=== PATIENT | male | born 1980 | race American Indian/Alaskan Native ===

== ENCOUNTER 2018-02-07 10:00 | Emergency (ER) | payer MEDICAID, OTHER ==
[2018-02-07 10:43] VITALS: BMI 42.3
--- NOTE | 2018-02-07 11:02 | C.PDOC ---
History Of Present Illness 37 y/o male presents to ED with c/o chest tightness "pulling" in nature 03/03 for 4 days worse today. Patient states symptoms are worse with certain movement or swallowing. Patient denies sob, cough, fever, back pain or any other complaints at this time. Time Seen by Provider: 02/07/18 10:41 Chief Complaint (Nursing): Chest Pain History Per: Patient History/Exam Limitations: no limitations Onset/Duration Of Symptoms: Days Current Symptoms Are (Timing): Still Present Quality: Tightness Past Medical History Reviewed: Historical Data, Nursing Documentation, Vital Signs Vital Signs: Last Vital Signs Temp 98.9 F 02/07/18 10:40 Pulse 86 02/07/18 11:33 Resp 20 02/07/18 10:40 BP 130/88 02/07/18 10:40 Pulse Ox 96 02/07/18 13:09 - Medical History PMH: Diverticulitis, HTN Surgical History: No Surg Hx - [facility] Procedures FLUOROSCOPY OF LEFT HEART USING LOW OSMOLAR CONTRAST (02/09/16) FLUOROSCOPY OF MULT COR ART USING L OSM CONTRAST (02/09/16) MEASURE OF CARDIAC SAMPL & PRESSURE, L HEART, PERC APPROACH (02/09/16) Family History: States: No Known Family Hx - Social History Hx Tobacco Use: Yes Hx Alcohol Use: Yes Hx Substance Use: No - Immunization History Hx Tetanus Toxoid Vaccination: No Hx Influenza Vaccination: No Hx Pneumococcal Vaccination: No Review Of Systems Constitutional: Negative for: Fever, Chills Cardiovascular: Positive for: Chest Pain Respiratory: Negative for: Cough, Shortness of Breath Gastrointestinal: Negative for: Nausea, Vomiting Skin: Negative for: Rash Physical Exam - Physical Exam Appears: Non-toxic, No Acute Distress Skin: Warm, Dry, No Rash Head: Atraumatic, Normacephalic Eye(s): bilateral: Normal Inspection Oral Mucosa: Moist Neck: Normal ROM, Supple Chest: Symmetrical Cardiovascular: Rhythm Regular Respiratory: Normal Breath Sounds, No Rales, No Rhonchi, No Wheezing Gastrointestinal/Abdominal: Soft, No Tenderness, No Guarding, No Rebound Extremity: Normal ROM, No Pedal Edema, Capillary Refill (<2 seconds) Neurological/Psych: Oriented x3, Normal Speech, Normal Cognition ED Course And Treatment - Laboratory Results Result Diagrams: 02/07/18 11:39 02/07/18 11:39 O2 Sat by Pulse Oximetry: 96 (RA) Pulse Ox Interpretation: Normal - Other Rad CXR X-Ray: Viewed By Me, Read By Radiologist Interpretation: Chest x-ray single frontal view. History: Chest pain. Comparison: None available. Findings. No focal infiltrate or effusion. Heart size within normal limits. Impression: No focal infiltrate or effusion. Medical Decision Making Medical Decision Making: Plan: --Labs --CXR --Toradol IV Updates: CXR was negative. On re-evaluation, patient feels better. Patient has been discharged and instructed to follow up with his PMD. Disposition Counseled Patient/Family Regarding: Studies Performed, Diagnosis, Need For Followup, Rx Given - Disposition Referrals: [facility] [Outside] Disposition: HOME/ ROUTINE Disposition Time: 12:49 Condition: STABLE Additional Instructions: Follow up with your doctor or our clinic Prescriptions: Ibuprofen [Motrin] 600 mg PO TID #15 tab Instructions: Costochondritis (DC) Forms: General Discharge Instructions, [facility] ([place]), Work Excuse - POA Present On Arrival: None - Clinical Impression Clinical Impression: Chest wall pain - Scribe Statement The provider has reviewed the documentation as recorded by the Scribjosé luis Hernandez All medical record entries made by the Swapnilibjosé luis were at my direction and personally dictated by me. I have reviewed the chart and agree that the record accurately reflects my personal performance of the history, physical exam, medical decision making, and the department course for this patient. I have also personally directed, reviewed, and agree with the discharge instructions and disposition.
[2018-02-07 11:43] LABS: BASO # 0.1 K/uL (0.0-0.2); EOS # 0.2 K/uL (0.0-0.7); EOS % 3.6 % (0.0-4.0); HEMOGLOBIN 15.1 g/dL (12.0-18.0); LYMPH # 2.2 K/uL (1.0-4.3); LYMPH % 33.5 % (20.0-40.0); MEAN CELL VOLUME 90.4 fL (80.0-94.0); MEAN CORPUSCULAR HGB CONC 35.5 g/dL (33.0-37.0); MEAN PLATELET VOLUME 9.7 fL (7.2-11.7); MONO # 0.6 K/uL (0.0-0.8); MONO % 8.6 % (0.0-10.0); NEUT # 3.5 K/uL (1.8-7.0); NEUT % 53.3 % (50.0-75.0); NRBC % 0.1 % (0.0-2.0); RBC 4.71 Mil/uL (4.40-5.90); RED CELL DISTRIBUTION WIDTH 14.5 % (11.5-14.5); WHITE BLOOD COUNT 6.6 K/uL (4.8-10.8)
[2018-02-07 12:06] LABS: ALB/GLOB RATIO 1.1 (1.0-2.1); ALBUMIN 4.5 g/dL (3.5-5.0); ALT/SGPT 34 U/L (21-72); AST/SGOT 29 U/L (17-59); BLOOD UREA NITROGEN 15 mg/dL (9-20); CALCIUM 9.4 mg/dl (8.6-10.4); GFR AFRICAN-AMERICAN > 60; GFR NON-AFRICAN AMERICAN > 60
--- NOTE | 2018-02-07 13:00 | RAD ---
Chest x-ray single frontal view History: Chest pain. Comparison: None available. Findings No focal infiltrate or effusion. Heart size within normal limits. Impression: No focal infiltrate or effusion.
[2018-02-07 13:16] VITALS: BP 128/82; PULSE 80; RESP 18; TEMP 98.4; O2SAT 97
--- NOTE | 2018-02-08 12:45 | CARD ---
APPROVED REPORT EKG Measurement Heart [id number] <Conclusion> Sinus rhythm with 1st degree AV block Right axis deviation Cannot rule out Anterior infarct, age undetermined Abnormal ECG
== END 2018-02-07 13:16 | disposition home or self-care (01) ==
LOC: C.ER 10:00
DX: R07.89 Other chest pain (principal); I10 Essential (primary) hypertension; Z87.891 Personal history of nicotine dependence
CPT/HCPCS: 71046; 80053; 84484; 85025; 93005; 96374; 99284; J1885

== ENCOUNTER 2018-05-06 12:53 | Emergency (ER) | payer OTHER ==
[2018-05-06 12:54] VITALS: BMI 43.9
[2018-05-06 13:04] VITALS: TEMP 98.8
[2018-05-06] MEDS ORDERED: Mag&Al/Simet/Diphen/Lido 237 ML KIT MM STA (14:31)
--- NOTE | 2018-05-06 14:35 | C.PDOC ---
History Of Present Illness 37 y/o M c PMHx HTN p/w sore throat x 4 days. Pain is in throat, worse with swallowing, associated with subjective fever although patient states temperature was normal at home. Having difficulty eating due to pain and has attempted to take Aleve and Nyquil. Denies recent travel, sick contacts, dyspnea , nausea, vomiting, rash, drooling. Time Seen by Provider: 05/06/18 14:24 Chief Complaint (Nursing): Cough, Cold, Congestion Past Medical History Vital Signs: Last Vital Signs Temp 98.8 F 05/06/18 13:00 Pulse 90 05/06/18 13:00 Resp 19 05/06/18 13:00 BP 148/105 H 05/06/18 13:00 Pulse Ox 97 05/06/18 16:16 - Medical History PMH: Diverticulitis, HTN - [facility] Procedures FLUOROSCOPY OF LEFT HEART USING LOW OSMOLAR CONTRAST (02/09/16) FLUOROSCOPY OF MULT COR ART USING L OSM CONTRAST (02/09/16) MEASURE OF CARDIAC SAMPL & PRESSURE, L HEART, PERC APPROACH (02/09/16) Family History: States: No Known Family Hx - Social History Hx Tobacco Use: Yes Hx Alcohol Use: Yes Hx Substance Use: Yes - Immunization History Hx Tetanus Toxoid Vaccination: Yes Hx Influenza Vaccination: No Hx Pneumococcal Vaccination: No Review Of Systems Except As Marked, All Systems Reviewed And Found Negative. Cardiovascular: Negative for: Chest Pain Gastrointestinal: Negative for: Vomiting Physical Exam - Physical Exam Additional Physical Exam Comments: Constitutional: No acute distress. Head: Normocephalic. Atraumatic. Eyes: PERRL. ENT: Pharyngeal erythema, no exudates. Uvula midline. No drooling. No stridor. Bilateral tender lymphadenpathy. Neck: Supple. Cardiovascular: Regular rate. Radial pulse 2+ bilaterally. Chest: No tenderness. Respiratory: Clear to auscultation bilaterally. GI: Soft. Nontender. Nondistended. Back: No CVA tenderness. Musculoskeletal: No tenderness or swelling of extremities. Skin: No rash. Neurologic: Alert, no focal deficit. ED Course And Treatment O2 Sat by Pulse Oximetry: 97 (RA) Pulse Ox Interpretation: Normal Medical Decision Making Medical Decision Making: Patient with pharyngitis, will evaluate for strep throat and treat symptomatically with magic mouthwash, toradol, and decadron. CXR to exclude pneumonia. EKG: NSR [address]/T changes Chest X-Ray: HISTORY: cough COMPARISON: 02/07/2018 TECHNIQUE: Chest PA and lateral FINDINGS: LUNGS: No active pulmonary disease. PLEURA: No significant pleural effusion identified. No pneumothorax apparent. CARDIOVASCULAR: Normal. OSSEOUS STRUCTURES: No significant abnormalities. VISUALIZED UPPER ABDOMEN: Normal. OTHER FINDINGS: None. IMPRESSION: No active disease. Strep test negative. Patient feels better after treatment. Will discharge, f/u PMD, return to ED for worsening pain, vomiting, dyspnea, drooling, or any other problem. Disposition - Disposition Referrals: [facility] [Outside] Disposition: HOME/ ROUTINE Disposition Time: 16:00 Condition: STABLE Prescriptions: Dexamethasone [Decadron] 5 tab PO ONCE #5 tab Famotidine [Pepcid] 1 tab PO BID #14 tab Ibuprofen [Motrin] 600 mg PO Q6 #25 tab Instructions: Viral Pharyngitis Forms: [facility] (Spanish) - Clinical Impression Clinical Impression: Pharyngitis
--- NOTE | 2018-05-06 15:09 | RAD ---
Date of service: 05/06/2018 HISTORY: cough COMPARISON: 02/07/2018 TECHNIQUE: Chest PA and lateral FINDINGS: LUNGS: No active pulmonary disease. PLEURA: No significant pleural effusion identified. No pneumothorax apparent. CARDIOVASCULAR: Normal. OSSEOUS STRUCTURES: No significant abnormalities. VISUALIZED UPPER ABDOMEN: Normal. OTHER FINDINGS: None. IMPRESSION: No active disease.
[2018-05-06 16:32] VITALS: BP 144/89; PULSE 95; RESP 18; O2SAT 95
--- NOTE | 2018-05-07 12:05 | CARD ---
APPROVED REPORT Date of service: 05/06/2018 EKG Measurement Heart [id number] <Conclusion> Sinus rhythm with 1st degree AV block Possible Left atrial enlargement Left posterior fascicular block Abnormal ECG
== END 2018-05-06 16:31 | disposition home or self-care (01) ==
LOC: C.ER 12:53
DX: J02.9 Acute pharyngitis, unspecified (principal); I10 Essential (primary) hypertension; Z72.0 Tobacco use
CPT/HCPCS: 71046; 87070; 87430; 93005; 96372; 99284; J1885; J8540

== ENCOUNTER 2018-11-19 10:39 | Emergency (ER) | payer OTHER ==
[2018-11-19 10:39] VITALS: BMI 43.9
[2018-11-19 10:51] VITALS: BP 153/95; O2SAT 98
--- NOTE | 2018-11-19 11:08 | C.PDOC ---
Time Seen by Provider: 11/19/18 10:55 Chief Complaint (Nursing): Flu-like Symptoms History Per: Patient Onset/Duration Of Symptoms: Days (1) Current Symptoms Are (Timing): Still Present Associated Symptoms: Fever, Chills, Sore Throat, Cough, Myalgias, Nasal Congestion, Diarrhea Severity: Moderate Recent travel outside of the [place]: No Additional History Per: Prior Records Past Medical History Reviewed: Historical Data, Nursing Documentation, Vital Signs Vital Signs: Last Vital Signs Temp 101.7 F H 11/19/18 10:49 Pulse 116 H 11/19/18 10:49 Resp 16 11/19/18 10:49 BP 153/95 H 11/19/18 10:49 Pulse Ox 98 11/19/18 10:49 - Medical History PMH: Diverticulitis, HTN - [facility] Procedures FLUOROSCOPY OF LEFT HEART USING LOW OSMOLAR CONTRAST (02/09/16) FLUOROSCOPY OF MULT COR ART USING L OSM CONTRAST (02/09/16) MEASURE OF CARDIAC SAMPL & PRESSURE, L HEART, PERC APPROACH (02/09/16) Family History: States: Unknown Family Hx - Social History Hx Tobacco Use: Yes Hx Alcohol Use: Yes Hx Substance Use: Yes - Immunization History Hx Tetanus Toxoid Vaccination: Yes Hx Influenza Vaccination: No Hx Pneumococcal Vaccination: No Review Of Systems Except As Marked, All Systems Reviewed And Found Negative. Constitutional: Positive for: Fever, Malaise ENT: Positive for: Nose Congestion, Throat Pain Cardiovascular: Negative for: Chest Pain Respiratory: Positive for: Cough. Negative for: Shortness of Breath Gastrointestinal: Positive for: Diarrhea. Negative for: Vomiting, Abdominal Pain, Melena, Hematochezia, Hematemesis Genitourinary: Negative for: Dysuria Musculoskeletal: Negative for: Neck Pain Skin: Negative for: Rash Neurological: Negative for: Weakness, Numbness, Seizures, Altered Mental Status Physical Exam - Physical Exam Appears: Non-toxic, No Acute Distress Skin: Normal Color, Warm, Dry, No Rash Head: Atraumatic, Normacephalic Eye(s): bilateral: Normal Inspection, PERRL, EOMI Ear(s): Bilateral: Normal Oral Mucosa: Moist Throat: Erythema, No Exudate, No Drooling, No Mass Neck: Normal ROM, Supple Cardiovascular: Rhythm Regular Respiratory: Normal Breath Sounds, No Accessory Muscle Use Gastrointestinal/Abdominal: Soft, No Tenderness Back: No CVA Tenderness Extremity: Normal ROM, No Deformity Neurological/Psych: Oriented x3, Normal Cognition, Normal Motor ED Course And Treatment O2 Sat by Pulse Oximetry: 98 Pulse Ox Interpretation: Normal Disposition Counseled Patient/Family Regarding: Diagnosis, Need For Followup, Rx Given - Disposition Referrals: [facility] [Outside] Disposition: HOME/ ROUTINE Disposition Time: 11:07 Condition: STABLE Additional Instructions: Drink plenty of fluids. Follow up in the clinic. Return to the ER if you develop shortness of breath, worsening of symptoms or if you have any other concerns. Prescriptions: Benzonatate 200 mg PO TID PRN #15 capsule PRN Reason: Cough Naproxen [Naprosyn] 1 tab PO BID PRN #20 tab PRN Reason: Pain Oseltamivir Cap [Tamiflu] 75 mg PO BID #10 cap Instructions: Flu, Adult (DC) - Clinical Impression Clinical Impression: Influenza-like illness
[2018-11-19 11:20] VITALS: PULSE 115; RESP 18; TEMP 101.5
== END 2018-11-19 11:19 | disposition home or self-care (01) ==
LOC: C.ER 10:39
DX: J11.1 Influenza due to unidentified influenza virus with other respiratory manifestations (principal); F17.210 Nicotine dependence, cigarettes, uncomplicated